=== PATIENT | female | born 1940 | race Caucasian/White ===

== ENCOUNTER 2021-08-16 12:53 | Inpatient (IN) | payer OTHER ==
[2021-08-16 17:12] LABS: EPI CELLS 2 /uL (0-25.1); HYALINE CASTS 7 /uL (0-3.1); URINE APPEARANCE CLOUDY; URINE BACTERIA >9,000 /uL (0-1359); URINE BILIRUBIN NEGATIVE (NEGATIVE); URINE COLOR YELLOW; URINE GLUCOSE (UA) NEGATIVE (NEGATIVE); URINE KETONE 1+ (NEGATIVE); URINE LEUK ESTERASE TRACE (NEGATIVE); URINE NITRITE POSITIVE (NEGATIVE); URINE PROTEIN 2+ (NEGATIVE); URINE RBC 10 /uL (0-23.9); URINE WBC 214 /uL (0-25.8)
[2021-08-16 17:22] LABS: CHLORIDE 105 mmol/L (98-107); SODIUM 137 mmol/L (136-145)
[2021-08-16 17:24] LABS: CALCIUM 9.3 mg/dL (8.5-10.1)
[2021-08-16 17:25] LABS: ALBUMIN 3.9 g/dl (3.4-5.0); ANION GAP 12 MMOL/L (8-16); BLOOD UREA NITROGEN 11.4 mg/dL (7-18); CO2 21 mmol/L (21-32); GLUCOSE,RANDOM 115 mg/dL (74-106); MAGNESIUM 2.2 mg/dL (1.8-2.4)
[2021-08-16] MEDS ORDERED: CEFTRIAXONE 1,000 MG in DEXTROSE 5%-WATER - 50 ML IVPB ONE (17:25)
[2021-08-16 17:28] LABS: CREATININE 0.8 mg/dL (0.55-1.3); PHOSPHOROUS 3.9 mg/dL (2.5-4.9); SGOT/AST 51 U/L (15-37); SGPT/ALT 28 U/L (13-61)
[2021-08-16 17:30] LABS: BASO % 1.2 % (0-2.0); BILIRUBIN,TOTAL 1.2 mg/dL (0.2-1); EOS % 0.1 % (0-4.5); HEMATOCRIT 39.6 % (32.4-45.2); HEMOGLOBIN 13.4 GM/dL (10.7-15.3); MCH 28.5 pg (25.7-33.7); MCHC 33.8 g/dl (32.0-36.0); MEAN CELL VOLUME 84.2 fl (80-96); MEAN PLT VOLUME 9.4 fl (7.5-11.1); MONO % 2.9 % (3.8-10.2); NEUT % 89.8 % (42.8-82.8); PLATELET COUNT 225 10^3/uL (134-434); RBC 4.71 M/mm3 (3.60-5.2); RDW 13.7 % (11.6-15.6); TOT PROT 7.1 g/dl (6.4-8.2); WHITE BLOOD COUNT 10.2 K/mm3 (4.0-10.0)
[2021-08-16 17:31] LABS: ALK PHOS 89 U/L (45-117)
[2021-08-16 18:09] LABS: PLATELET ESTIMATE ADEQUATE
[2021-08-16] MEDS ORDERED: CEFTRIAXONE 1 GM/50 ML BAG ONE (18:16)
[2021-08-16] MEDS ORDERED: ASPIRIN 81 MG CHEWABLE TABLETS ONE (18:16)
[2021-08-16] MEDS ORDERED: ASPIRIN 81 MG CHEWABLE TABLETS PO ONE (18:16)
[2021-08-16] MEDS ORDERED: ACETAMINOPHEN 325 MG TABLET (FP) PO PRN (21:58)
[2021-08-16] MEDS ORDERED: POLYETHYLENE GLYCOL (HEALTHYLAX) 3350 17 GM PACKET PO PRN (21:58)
[2021-08-17] MEDS: DEXTROSE 5%-NORMAL SALINE 1,000 ML IV SCH ×2 (01:47→22:19)
[2021-08-17 07:09] LABS: BASO % 0.3 % (0-2.0); EOS % 0.1 % (0-4.5); HEMATOCRIT 39.3 % (32.4-45.2); LYMPH % 7.2 % (8-40); MCH 28.3 pg (25.7-33.7); MCHC 33.2 g/dl (32.0-36.0); MEAN CELL VOLUME 85.2 fl (80-96); MEAN PLT VOLUME 9.2 fl (7.5-11.1); MONO % 5.3 % (3.8-10.2); NEUT % 87.1 % (42.8-82.8); PLATELET COUNT 212 10^3/uL (134-434); RBC 4.61 M/mm3 (3.60-5.2); RDW 13.9 % (11.6-15.6); WHITE BLOOD COUNT 10.4 K/mm3 (4.0-10.0)
[2021-08-17 07:21] LABS: INR 1.12 (0.83-1.09); PROTHROMBIN TIME (PATIENT) 12.9 SEC (9.7-13.0)
[2021-08-17 07:24] LABS: ACTIVATED PTT 29.8 SECONDS (25.2-36.5)
[2021-08-17 07:28] LABS: CHLORIDE 105 mmol/L (98-107); SODIUM 138 mmol/L (136-145)
[2021-08-17 07:29] LABS: CALCIUM 9.2 mg/dL (8.5-10.1)
[2021-08-17 07:30] LABS: ANION GAP 13 MMOL/L (8-16); BLOOD UREA NITROGEN 14.7 mg/dL (7-18); CO2 20 mmol/L (21-32); GLUCOSE,RANDOM 104 mg/dL (74-106)
[2021-08-17 07:34] LABS: CREATININE 0.7 mg/dL (0.55-1.3)
[2021-08-17] MEDS: ENOXAPARIN NA (PORCINE) 40 MG/0.4 ML DISP.SYRIN SQ SCH (10:05)
[2021-08-17 12:14] LABS: CHOLESTEROL 189 mg/dL (50-200); TRIGLYCERIDES 78 mg/dL (0-150)
[2021-08-17 12:15] LABS: LDL CHOLESTEROL (ONLY SJRH) 116 mg/dL (5-100)
[2021-08-17 12:16] LABS: HDL CHOLESTEROL 65 mg/dL (40-60)
[2021-08-17 12:18] LABS: N-TERMINAL BNP 7055.6 pg/ml (5-450)
[2021-08-17] MEDS: ASPIRIN 81 MG CHEWABLE TABLETS PO SCH (13:19)
[2021-08-17] MEDS: SODIUM CHLORIDE 1,000 ML IV SCH (13:19)
[2021-08-17] MEDS ORDERED: cefTRIAXone SODIUM 1 GM VIAL ONE (17:52)
[2021-08-17] MEDS: CEFTRIAXONE 1 GM in DEXTROSE 5%-WATER - 50 ML IVPB SCH (18:08)
[2021-08-18 08:04] LABS: BASO % 0.8 % (0-2.0); EOS % 1.6 % (0-4.5); HEMATOCRIT 38.6 % (32.4-45.2); HEMOGLOBIN 12.9 GM/dL (10.7-15.3); LYMPH % 13.4 % (8-40); MCH 28.5 pg (25.7-33.7); MCHC 33.4 g/dl (32.0-36.0); MEAN CELL VOLUME 85.1 fl (80-96); MEAN PLT VOLUME 9.5 fl (7.5-11.1); MONO % 8.7 % (3.8-10.2); NEUT % 75.5 % (42.8-82.8); PLATELET COUNT 220 10^3/uL (134-434); RBC 4.53 M/mm3 (3.60-5.2); RDW 13.7 % (11.6-15.6); WHITE BLOOD COUNT 7.6 K/mm3 (4.0-10.0)
[2021-08-18 08:27] LABS: BLOOD UREA NITROGEN 16.8 mg/dL (7-18); CALCIUM 9.4 mg/dL (8.5-10.1)
[2021-08-18 08:30] LABS: CREATININE 0.7 mg/dL (0.55-1.3)
[2021-08-18 08:32] LABS: BILIRUBIN,TOTAL 1.1 mg/dL (0.2-1); TOT PROT 6.3 g/dl (6.4-8.2)
[2021-08-18 08:33] LABS: ALBUMIN 3.4 g/dl (3.4-5.0)
[2021-08-18] MEDS ORDERED: cefTRIAXone SODIUM 1 GM VIAL ONE (09:25)
[2021-08-18] MEDS ORDERED: DEXTROSE 5%-WATER - 50 ML IVPB ONE (09:25)
[2021-08-18] MEDS: METOPROLOL TARTRATE 25 MG TABLET (FP) PO SCH ×2 (09:28→22:34)
[2021-08-18] MEDS: ASPIRIN 81 MG CHEWABLE TABLETS PO SCH (09:28)
[2021-08-18] MEDS: ENOXAPARIN NA (PORCINE) 40 MG/0.4 ML DISP.SYRIN SQ SCH (09:28)
[2021-08-18] MEDS: CEFTRIAXONE 1 GM in DEXTROSE 5%-WATER - 50 ML IVPB SCH (09:28)
[2021-08-18] MEDS: SODIUM CHLORIDE 1,000 ML IV SCH (22:34)
[2021-08-18] MEDS: DEXTROSE 5%-NORMAL SALINE 1,000 ML IV SCH (22:34)
[2021-08-18] MEDS: MELATONIN 5 MG TABLETS PO PRN (22:38)
[2021-08-19 07:05] LABS: BASO % 1.3 % (0-2.0); EOS % 2.4 % (0-4.5); HEMATOCRIT 38.8 % (32.4-45.2); HEMOGLOBIN 13.2 GM/dL (10.7-15.3); LYMPH % 17.8 % (8-40); MCH 28.7 pg (25.7-33.7); MCHC 34.1 g/dl (32.0-36.0); MEAN CELL VOLUME 84.3 fl (80-96); MEAN PLT VOLUME 9.7 fl (7.5-11.1); MONO % 7.5 % (3.8-10.2); PLATELET COUNT 217 10^3/uL (134-434); RBC 4.61 M/mm3 (3.60-5.2); RDW 13.7 % (11.6-15.6); WHITE BLOOD COUNT 7.1 K/mm3 (4.0-10.0)
[2021-08-19 07:28] LABS: CALCIUM 8.8 mg/dL (8.5-10.1)
[2021-08-19 07:29] LABS: BLOOD UREA NITROGEN 13.9 mg/dL (7-18)
[2021-08-19 07:33] LABS: CREATININE 0.5 mg/dL (0.55-1.3)
[2021-08-19] MEDS: D5-1/2NS+10 MEQ KCL - 10 MEQ/1,000 ML INFUS.BAG IV SCH (10:30)
[2021-08-19] MEDS ORDERED: cefTRIAXone SODIUM 1 GM VIAL ONE (10:51)
[2021-08-19] MEDS ORDERED: DEXTROSE 5%-WATER - 50 ML IVPB ONE (10:51)
[2021-08-19] MEDS: CEFTRIAXONE 1 GM in DEXTROSE 5%-WATER - 50 ML IVPB SCH (10:53)
[2021-08-19] MEDS: ASPIRIN 81 MG CHEWABLE TABLETS PO SCH (10:53)
[2021-08-19] MEDS: ENOXAPARIN NA (PORCINE) 40 MG/0.4 ML DISP.SYRIN SQ SCH (10:53)
[2021-08-19] MEDS: METOPROLOL TARTRATE 25 MG TABLET (FP) PO SCH ×2 (10:53→21:49)
[2021-08-19] MEDS: MELATONIN 5 MG TABLETS PO PRN (21:49)
[2021-08-19] MEDS: ATORVASTATIN CA 10 MG TABLET (FP) PO SCH (21:50)
[2021-08-20 07:32] LABS: BASO % 0.9 % (0-2.0); EOS % 2.9 % (0-4.5); HEMATOCRIT 39.5 % (32.4-45.2); HEMOGLOBIN 13.3 GM/dL (10.7-15.3); LYMPH % 14.2 % (8-40); MCH 28.2 pg (25.7-33.7); MCHC 33.6 g/dl (32.0-36.0); MEAN CELL VOLUME 84.1 fl (80-96); MEAN PLT VOLUME 9.8 fl (7.5-11.1); MONO % 7.9 % (3.8-10.2); NEUT % 74.1 % (42.8-82.8); PLATELET COUNT 223 10^3/uL (134-434); RDW 13.9 % (11.6-15.6); WHITE BLOOD COUNT 7.6 K/mm3 (4.0-10.0)
[2021-08-20 07:49] LABS: CALCIUM 8.7 mg/dL (8.5-10.1)
[2021-08-20 07:53] LABS: CREATININE 0.6 mg/dL (0.55-1.3)
[2021-08-20] MEDS ORDERED: DEXTROSE 5%-WATER - 50 ML IVPB ONE (09:18)
[2021-08-20] MEDS ORDERED: cefTRIAXone SODIUM 1 GM VIAL ONE (09:18)
[2021-08-20] MEDS: D5-1/2NS+10 MEQ KCL - 10 MEQ/1,000 ML INFUS.BAG IV SCH (09:48)
[2021-08-20] MEDS: ASPIRIN 81 MG CHEWABLE TABLETS PO SCH (09:50)
[2021-08-20] MEDS: METOPROLOL TARTRATE 25 MG TABLET (FP) PO SCH ×2 (09:51→21:54)
[2021-08-20] MEDS: CEFTRIAXONE 1 GM in DEXTROSE 5%-WATER - 50 ML IVPB SCH (09:51)
[2021-08-20] MEDS: ENOXAPARIN NA (PORCINE) 40 MG/0.4 ML DISP.SYRIN SQ SCH (09:51)
[2021-08-20] MEDS: MELATONIN 5 MG TABLETS PO PRN (21:54)
[2021-08-20] MEDS: ATORVASTATIN CA 10 MG TABLET (FP) PO SCH (21:54)
[2021-08-21] MEDS: ENOXAPARIN NA (PORCINE) 40 MG/0.4 ML DISP.SYRIN SQ SCH (10:53)
[2021-08-21] MEDS: CEFUROXIME AXETIL 500 MG TABLET PO SCH ×2 (10:53→23:04)
[2021-08-21] MEDS: METOPROLOL TARTRATE 25 MG TABLET (FP) PO SCH ×2 (10:53→23:04)
[2021-08-21] MEDS: ASPIRIN 81 MG CHEWABLE TABLETS PO SCH (10:53)
[2021-08-21] MEDS: D5-1/2NS+10 MEQ KCL - 10 MEQ/1,000 ML INFUS.BAG IV SCH (14:49)
[2021-08-21] MEDS: MELATONIN 5 MG TABLETS PO PRN (23:04)
[2021-08-21] MEDS: ATORVASTATIN CA 10 MG TABLET (FP) PO SCH (23:04)
[2021-08-22] MEDS: LEVOTHYROXINE NA 25 MCG TABLET (FP) PO SCH (06:05)
[2021-08-22] MEDS ORDERED: LOSARTAN POTASSIUM 25 MG TABLET PO ONE (08:49)
[2021-08-22] MEDS: D5-1/2NS+10 MEQ KCL - 10 MEQ/1,000 ML INFUS.BAG IV SCH ×2 (08:54→20:26)
[2021-08-22] MEDS: ASPIRIN 81 MG CHEWABLE TABLETS PO SCH (09:52)
[2021-08-22] MEDS: ENOXAPARIN NA (PORCINE) 40 MG/0.4 ML DISP.SYRIN SQ SCH (09:52)
[2021-08-22] MEDS: METOPROLOL TARTRATE 25 MG TABLET (FP) PO SCH ×2 (09:52→21:07)
[2021-08-22] MEDS: CEFUROXIME AXETIL 500 MG TABLET PO SCH ×2 (09:53→21:07)
[2021-08-22 11:34] LABS: BASO % 1.2 % (0-2.0); HEMATOCRIT 38.2 % (32.4-45.2); HEMOGLOBIN 12.9 GM/dL (10.7-15.3); LYMPH % 12.7 % (8-40); MCH 28.2 pg (25.7-33.7); MCHC 33.7 g/dl (32.0-36.0); MEAN CELL VOLUME 83.6 fl (80-96); MEAN PLT VOLUME 9.3 fl (7.5-11.1); MONO % 8.8 % (3.8-10.2); NEUT % 73.3 % (42.8-82.8); PLATELET COUNT 244 10^3/uL (134-434); RBC 4.57 M/mm3 (3.60-5.2); WHITE BLOOD COUNT 6.5 K/mm3 (4.0-10.0)
[2021-08-22 11:56] LABS: CALCIUM 8.9 mg/dL (8.5-10.1)
[2021-08-22 11:57] LABS: BLOOD UREA NITROGEN 4.3 mg/dL (7-18)
[2021-08-22 12:00] LABS: CREATININE 0.5 mg/dL (0.55-1.3)
[2021-08-22] MEDS: AMMONIUM LACTATE 12% LOTION 225 GM BOTTLE TP SCH ×3 (12:36→21:08)
[2021-08-22] MEDS: ATORVASTATIN CA 10 MG TABLET (FP) PO SCH (21:07)
[2021-08-23] MEDS: LEVOTHYROXINE NA 25 MCG TABLET (FP) PO SCH (06:28)
[2021-08-23 07:42] LABS: BASO % 0.8 % (0-2.0); EOS % 3.9 % (0-4.5); HEMATOCRIT 37.8 % (32.4-45.2); HEMOGLOBIN 12.7 GM/dL (10.7-15.3); LYMPH % 13.9 % (8-40); MCHC 33.7 g/dl (32.0-36.0); MEAN CELL VOLUME 83.2 fl (80-96); MEAN PLT VOLUME 10.1 fl (7.5-11.1); MONO % 8.4 % (3.8-10.2); PLATELET COUNT 248 10^3/uL (134-434); RBC 4.54 M/mm3 (3.60-5.2); RDW 13.9 % (11.6-15.6)
[2021-08-23 08:12] LABS: CALCIUM 8.6 mg/dL (8.5-10.1)
[2021-08-23 08:13] LABS: BLOOD UREA NITROGEN 4.5 mg/dL (7-18)
[2021-08-23 08:16] LABS: CREATININE 0.5 mg/dL (0.55-1.3)
[2021-08-23] MEDS: ASPIRIN 81 MG CHEWABLE TABLETS PO SCH (10:27)
[2021-08-23] MEDS: CEFUROXIME AXETIL 500 MG TABLET PO SCH ×2 (10:27→21:14)
[2021-08-23] MEDS: METOPROLOL TARTRATE 25 MG TABLET (FP) PO SCH ×2 (10:27→21:14)
[2021-08-23] MEDS: D5-1/2NS+10 MEQ KCL - 10 MEQ/1,000 ML INFUS.BAG IV SCH (10:27)
[2021-08-23] MEDS: ENOXAPARIN NA (PORCINE) 40 MG/0.4 ML DISP.SYRIN SQ SCH (10:27)
[2021-08-23] MEDS: AMMONIUM LACTATE 12% LOTION 225 GM BOTTLE TP SCH ×2 (10:28→22:16)
[2021-08-23] MEDS ORDERED: POLYETHYLENE GLYCOL (HEALTHYLAX) 3350 17 GM PACKET PO PRN (19:43)
[2021-08-23] MEDS ORDERED: ACETAMINOPHEN 325 MG TABLET (FP) PO PRN (19:43)
[2021-08-23] MEDS ORDERED: MELATONIN 5 MG TABLETS PO PRN (19:43)
[2021-08-23] MEDS: LOSARTAN POTASSIUM 50 MG TABLET PO SCH (20:02)
[2021-08-23] MEDS: ATORVASTATIN CA 10 MG TABLET (FP) PO SCH (21:14)
[2021-08-24] MEDS: LEVOTHYROXINE NA 25 MCG TABLET (FP) PO SCH (06:05)
[2021-08-24] MEDS: CEFUROXIME AXETIL 500 MG TABLET PO SCH ×2 (09:59→21:59)
[2021-08-24] MEDS: METOPROLOL TARTRATE 25 MG TABLET (FP) PO SCH ×2 (09:59→22:00)
[2021-08-24] MEDS: ASPIRIN 81 MG CHEWABLE TABLETS PO SCH (09:59)
[2021-08-24] MEDS: AMMONIUM LACTATE 12% LOTION 225 GM BOTTLE TP SCH ×2 (09:59→22:00)
[2021-08-24] MEDS: ENOXAPARIN NA (PORCINE) 40 MG/0.4 ML DISP.SYRIN SQ SCH (09:59)
[2021-08-24] MEDS: LOSARTAN POTASSIUM 50 MG TABLET PO SCH (09:59)
[2021-08-24 13:29] LABS: BASO % 1.5 % (0-2.0); EOS % 0.8 % (0-4.5); LYMPH % 8.2 % (8-40); MCH 28.3 pg (25.7-33.7); MCHC 34.2 g/dl (32.0-36.0); MEAN CELL VOLUME 82.8 fl (80-96); MEAN PLT VOLUME 9.7 fl (7.5-11.1); MONO % 15.5 % (3.8-10.2); PLATELET COUNT 263 10^3/uL (134-434); RBC 4.95 M/mm3 (3.60-5.2); RDW 13.8 % (11.6-15.6); WHITE BLOOD COUNT 4.5 K/mm3 (4.0-10.0)
[2021-08-24 16:19] LABS: BLOOD UREA NITROGEN 9.1 mg/dL (7-18); CALCIUM 9.1 mg/dL (8.5-10.1); CREATININE 0.6 mg/dL (0.55-1.3)
[2021-08-24] MEDS: ATORVASTATIN CA 10 MG TABLET (FP) PO SCH (22:00)
[2021-08-25] MEDS: LEVOTHYROXINE NA 25 MCG TABLET (FP) PO SCH (06:09)
[2021-08-25] MEDS: D5-1/2NS+10 MEQ KCL - 10 MEQ/1,000 ML INFUS.BAG IV SCH ×2 (10:24→20:57)
[2021-08-25] MEDS: ASPIRIN 81 MG CHEWABLE TABLETS PO SCH (10:25)
[2021-08-25] MEDS: CEFUROXIME AXETIL 500 MG TABLET PO SCH ×2 (10:26→23:33)
[2021-08-25] MEDS: LOSARTAN POTASSIUM 50 MG TABLET PO SCH (10:26)
[2021-08-25] MEDS: METOPROLOL TARTRATE 25 MG TABLET (FP) PO SCH ×2 (10:26→23:34)
[2021-08-25] MEDS: AMMONIUM LACTATE 12% LOTION 225 GM BOTTLE TP SCH ×2 (10:27→23:34)
[2021-08-25] MEDS: ENOXAPARIN NA (PORCINE) 40 MG/0.4 ML DISP.SYRIN SQ SCH (10:27)
[2021-08-25 20:20] LABS: PH,URINE 5.5 (5.0-8.0); URINE APPEARANCE CLEAR; URINE BILIRUBIN NEGATIVE (NEGATIVE); URINE COLOR DK YELLOW; URINE GLUCOSE (UA) NEGATIVE (NEGATIVE); URINE KETONE TRACE (NEGATIVE); URINE LEUK ESTERASE NEGATIVE (NEGATIVE); URINE NITRITE NEGATIVE (NEGATIVE); URINE PROTEIN TRACE (NEGATIVE)
[2021-08-25] MEDS: ATORVASTATIN CA 10 MG TABLET (FP) PO SCH (23:34)
[2021-08-26] MEDS: LEVOTHYROXINE NA 25 MCG TABLET (FP) PO SCH (06:03)
[2021-08-26 09:04] LABS: BASO % 0.7 % (0-2.0); EOS % 0.8 % (0-4.5); HEMATOCRIT 37.1 % (32.4-45.2); HEMOGLOBIN 12.6 GM/dL (10.7-15.3); LYMPH % 20.5 % (8-40); MCH 28.3 pg (25.7-33.7); MCHC 33.9 g/dl (32.0-36.0); MEAN CELL VOLUME 83.5 fl (80-96); MEAN PLT VOLUME 9.6 fl (7.5-11.1); MONO % 15.8 % (3.8-10.2); NEUT % 62.2 % (42.8-82.8); PLATELET COUNT 235 10^3/uL (134-434); RBC 4.44 M/mm3 (3.60-5.2); RDW 13.7 % (11.6-15.6); WHITE BLOOD COUNT 4.3 K/mm3 (4.0-10.0)
[2021-08-26] MEDS: D5-1/2NS+10 MEQ KCL - 10 MEQ/1,000 ML INFUS.BAG IV SCH (11:45)
[2021-08-26] MEDS: LOSARTAN POTASSIUM 50 MG TABLET PO SCH (11:46)
[2021-08-26] MEDS: CEFUROXIME AXETIL 500 MG TABLET PO SCH (11:46)
[2021-08-26] MEDS: METOPROLOL TARTRATE 25 MG TABLET (FP) PO SCH ×2 (11:46→21:44)
[2021-08-26] MEDS: ASPIRIN 81 MG CHEWABLE TABLETS PO SCH (11:46)
[2021-08-26] MEDS: ENOXAPARIN NA (PORCINE) 40 MG/0.4 ML DISP.SYRIN SQ SCH (11:46)
[2021-08-26] MEDS: AMMONIUM LACTATE 12% LOTION 225 GM BOTTLE TP SCH ×2 (11:47→21:44)
[2021-08-26] MEDS: ATORVASTATIN CA 10 MG TABLET (FP) PO SCH (21:44)
[2021-08-27] MEDS: LEVOTHYROXINE NA 25 MCG TABLET (FP) PO SCH (06:12)
[2021-08-27] MEDS: METOPROLOL TARTRATE 25 MG TABLET (FP) PO SCH ×2 (11:47→21:38)
[2021-08-27] MEDS: ENOXAPARIN NA (PORCINE) 40 MG/0.4 ML DISP.SYRIN SQ SCH (11:47)
[2021-08-27] MEDS: ASPIRIN 81 MG CHEWABLE TABLETS PO SCH (11:47)
[2021-08-27] MEDS: LOSARTAN POTASSIUM 50 MG TABLET PO SCH (11:47)
[2021-08-27] MEDS: SODIUM CHLORIDE 1,000 ML IV SCH (11:48)
[2021-08-27] MEDS: AMMONIUM LACTATE 12% LOTION 225 GM BOTTLE TP SCH ×2 (11:49→21:38)
[2021-08-27 13:02] LABS: EOS % 0.6 % (0-4.5); HEMATOCRIT 37.1 % (32.4-45.2); HEMOGLOBIN 12.8 GM/dL (10.7-15.3); LYMPH % 19.9 % (8-40); MCH 28.1 pg (25.7-33.7); MCHC 34.6 g/dl (32.0-36.0); MEAN CELL VOLUME 81.1 fl (80-96); MEAN PLT VOLUME 9.6 fl (7.5-11.1); MONO % 14.9 % (3.8-10.2); NEUT % 63.6 % (42.8-82.8); PLATELET COUNT 230 10^3/uL (134-434); RBC 4.57 M/mm3 (3.60-5.2); RDW 13.8 % (11.6-15.6); WHITE BLOOD COUNT 3.6 K/mm3 (4.0-10.0)
[2021-08-27 13:24] LABS: BLOOD UREA NITROGEN 12.7 mg/dL (7-18); CALCIUM 8.3 mg/dL (8.5-10.1); MAGNESIUM 2.2 mg/dL (1.8-2.4)
[2021-08-27 13:27] LABS: CREATININE 0.6 mg/dL (0.55-1.3)
[2021-08-27 14:28] LABS: URIC ACID 3.1 mg/dL (2.6-7.2)
[2021-08-27] MEDS: ATORVASTATIN CA 10 MG TABLET (FP) PO SCH (21:37)
[2021-08-28] MEDS: LEVOTHYROXINE NA 25 MCG TABLET (FP) PO SCH (09:00)
[2021-08-28 09:10] LABS: BLOOD UREA NITROGEN 11.7 mg/dL (7-18)
[2021-08-28 09:13] LABS: CREATININE 0.5 mg/dL (0.55-1.3)
[2021-08-28] MEDS: ASPIRIN 81 MG CHEWABLE TABLETS PO SCH (11:11)
[2021-08-28] MEDS: LOSARTAN POTASSIUM 50 MG TABLET PO SCH (11:11)
[2021-08-28] MEDS: AMMONIUM LACTATE 12% LOTION 225 GM BOTTLE TP SCH (11:11)
[2021-08-28] MEDS: METOPROLOL TARTRATE 25 MG TABLET (FP) PO SCH ×2 (11:11→22:18)
[2021-08-28] MEDS: SODIUM CHLORIDE 1,000 ML IV SCH (11:12)
[2021-08-28] MEDS: ENOXAPARIN NA (PORCINE) 40 MG/0.4 ML DISP.SYRIN SQ SCH (13:00)
[2021-08-28] MEDS ORDERED: SODIUM CHLORIDE 1,000 ML IV SCH (15:15)
[2021-08-28] MEDS ORDERED: REMDESIVIR 200 MG in SODIUM CHLORIDE 250 ML IVPB ONE ×2 (16:59→18:00)
[2021-08-28] MEDS: DEXAMETHASONE 4 MG TABLET (FP) PO SCH (18:02)
[2021-08-28] MEDS: ATORVASTATIN CA 10 MG TABLET (FP) PO SCH (22:18)
[2021-08-29] MEDS: AMMONIUM LACTATE 12% LOTION 225 GM BOTTLE TP SCH ×3 (01:31→22:07)
[2021-08-29] MEDS: LEVOTHYROXINE NA 25 MCG TABLET (FP) PO SCH (06:18)
[2021-08-29] MEDS: ASPIRIN 81 MG CHEWABLE TABLETS PO SCH (10:10)
[2021-08-29] MEDS: LOSARTAN POTASSIUM 50 MG TABLET PO SCH (10:10)
[2021-08-29] MEDS: METOPROLOL TARTRATE 25 MG TABLET (FP) PO SCH ×2 (10:10→22:06)
[2021-08-29] MEDS: DEXAMETHASONE 4 MG TABLET (FP) PO SCH (10:10)
[2021-08-29] MEDS: ENOXAPARIN NA (PORCINE) 40 MG/0.4 ML DISP.SYRIN SQ SCH (10:11)
[2021-08-29 11:33] LABS: CALCIUM 8.3 mg/dL (8.5-10.1)
[2021-08-29 11:39] LABS: CREATININE 0.4 mg/dL (0.55-1.3)
[2021-08-29 11:40] LABS: TOT PROT 5.2 g/dl (6.4-8.2)
[2021-08-29 11:41] LABS: ALBUMIN 2.6 g/dl (3.4-5.0); BILIRUBIN,TOTAL 0.3 mg/dL (0.2-1)
[2021-08-29] MEDS: REMDESIVIR 100 MG in SODIUM CHLORIDE 250 ML IVPB SCH (17:53)
[2021-08-29] MEDS ORDERED: REMDESIVIR 100 MG in SODIUM CHLORIDE 250 ML IVPB SCH (18:00)
[2021-08-29] MEDS: ATORVASTATIN CA 10 MG TABLET (FP) PO SCH (22:07)
[2021-08-30] MEDS: LEVOTHYROXINE NA 25 MCG TABLET (FP) PO SCH (06:02)
[2021-08-30 10:07] LABS: BASO % 0.2 % (0-2.0); HEMATOCRIT 37.3 % (32.4-45.2); HEMOGLOBIN 12.5 GM/dL (10.7-15.3); LYMPH % 14.8 % (8-40); MCHC 33.6 g/dl (32.0-36.0); MEAN CELL VOLUME 83.3 fl (80-96); MEAN PLT VOLUME 9.9 fl (7.5-11.1); MONO % 8.1 % (3.8-10.2); NEUT % 76.9 % (42.8-82.8); PLATELET COUNT 243 10^3/uL (134-434); RBC 4.48 M/mm3 (3.60-5.2); WHITE BLOOD COUNT 7.1 K/mm3 (4.0-10.0)
[2021-08-30 10:27] LABS: CALCIUM 8.6 mg/dL (8.5-10.1)
[2021-08-30 10:28] LABS: ALBUMIN 2.6 g/dl (3.4-5.0); BLOOD UREA NITROGEN 14.2 mg/dL (7-18)
[2021-08-30 10:31] LABS: CREATININE 0.6 mg/dL (0.55-1.3)
[2021-08-30 10:32] LABS: BILIRUBIN,TOTAL 0.6 mg/dL (0.2-1)
[2021-08-30 10:33] LABS: TOT PROT 5.2 g/dl (6.4-8.2)
[2021-08-30] MEDS: ENOXAPARIN NA (PORCINE) 40 MG/0.4 ML DISP.SYRIN SQ SCH (10:40)
[2021-08-30] MEDS: AMMONIUM LACTATE 12% LOTION 225 GM BOTTLE TP SCH ×2 (10:41→22:05)
[2021-08-30] MEDS: METOPROLOL TARTRATE 25 MG TABLET (FP) PO SCH ×2 (10:41→22:06)
[2021-08-30] MEDS: DEXAMETHASONE 4 MG TABLET (FP) PO SCH (10:41)
[2021-08-30] MEDS: LOSARTAN POTASSIUM 50 MG TABLET PO SCH (10:41)
[2021-08-30] MEDS: ASPIRIN 81 MG CHEWABLE TABLETS PO SCH (10:42)
[2021-08-30] MEDS: REMDESIVIR 100 MG in SODIUM CHLORIDE 250 ML IVPB SCH (16:39)
[2021-08-30] MEDS: ATORVASTATIN CA 10 MG TABLET (FP) PO SCH (22:06)
[2021-08-31] MEDS: LEVOTHYROXINE NA 25 MCG TABLET (FP) PO SCH (06:07)
[2021-08-31] MEDS: DEXAMETHASONE 4 MG TABLET (FP) PO SCH (09:21)
[2021-08-31] MEDS: ENOXAPARIN NA (PORCINE) 40 MG/0.4 ML DISP.SYRIN SQ SCH (09:21)
[2021-08-31] MEDS: METOPROLOL TARTRATE 25 MG TABLET (FP) PO SCH ×2 (09:22→22:19)
[2021-08-31] MEDS: LOSARTAN POTASSIUM 50 MG TABLET PO SCH (09:22)
[2021-08-31] MEDS: ASPIRIN 81 MG CHEWABLE TABLETS PO SCH (09:22)
[2021-08-31] MEDS: AMMONIUM LACTATE 12% LOTION 225 GM BOTTLE TP SCH ×2 (09:22→22:20)
[2021-08-31 09:44] LABS: BASO % 0.3 % (0-2.0); HEMATOCRIT 36.6 % (32.4-45.2); HEMOGLOBIN 12.4 GM/dL (10.7-15.3); LYMPH % 14.3 % (8-40); MCH 28.2 pg (25.7-33.7); MCHC 33.8 g/dl (32.0-36.0); MEAN CELL VOLUME 83.3 fl (80-96); MEAN PLT VOLUME 9.6 fl (7.5-11.1); MONO % 8.1 % (3.8-10.2); NEUT % 77.3 % (42.8-82.8); PLATELET COUNT 235 10^3/uL (134-434); RBC 4.39 M/mm3 (3.60-5.2); RDW 14.5 % (11.6-15.6); WHITE BLOOD COUNT 8.1 K/mm3 (4.0-10.0)
[2021-08-31 09:57] LABS: ALBUMIN 2.7 g/dl (3.4-5.0); CALCIUM 8.7 mg/dL (8.5-10.1)
[2021-08-31 09:58] LABS: BLOOD UREA NITROGEN 18.8 mg/dL (7-18)
[2021-08-31 10:01] LABS: CREATININE 0.6 mg/dL (0.55-1.3)
[2021-08-31 10:02] LABS: BILIRUBIN,TOTAL 0.4 mg/dL (0.2-1)
[2021-08-31] MEDS ORDERED: D5-1/2NS+10 MEQ KCL - 10 MEQ/1,000 ML INFUS.BAG IV SCH (13:00)
[2021-08-31] MEDS: AMINO ACIDS/PROTEIN HYDROLYS 30 ML LIQUID.PKT PO SCH (16:45)
[2021-08-31] MEDS: REMDESIVIR 100 MG in SODIUM CHLORIDE 250 ML IVPB SCH (16:45)
[2021-08-31] MEDS: ATORVASTATIN CA 10 MG TABLET (FP) PO SCH (22:19)
[2021-09-01] MEDS: LEVOTHYROXINE NA 25 MCG TABLET (FP) PO SCH (06:18)
[2021-09-01] MEDS: ENOXAPARIN NA (PORCINE) 40 MG/0.4 ML DISP.SYRIN SQ SCH (09:54)
[2021-09-01] MEDS: METOPROLOL TARTRATE 25 MG TABLET (FP) PO SCH ×2 (09:54→22:03)
[2021-09-01] MEDS: LOSARTAN POTASSIUM 50 MG TABLET PO SCH (09:54)
[2021-09-01] MEDS: ASPIRIN 81 MG CHEWABLE TABLETS PO SCH (09:54)
[2021-09-01] MEDS: DEXAMETHASONE 4 MG TABLET (FP) PO SCH (09:54)
[2021-09-01] MEDS: AMINO ACIDS/PROTEIN HYDROLYS 30 ML LIQUID.PKT PO SCH (09:55)
[2021-09-01] MEDS: AMMONIUM LACTATE 12% LOTION 225 GM BOTTLE TP SCH ×2 (09:55→22:04)
[2021-09-01] MEDS ORDERED: D5-NS + 20 MEQ KCL - 20 MEQ/1,000 ML INFUS.BAG IV SCH (12:30)
[2021-09-01 12:49] LABS: CALCIUM 8.5 mg/dL (8.5-10.1)
[2021-09-01 12:53] LABS: CREATININE 0.4 mg/dL (0.55-1.3)
[2021-09-01 13:06] LABS: N-TERMINAL BNP 14259.1 pg/ml (5-450)
[2021-09-01] MEDS: AMINO ACIDS 4.25%/D5W 1,000 ML IV SCH (15:14)
[2021-09-01 15:44] VITALS: BMI 17.7
[2021-09-01] MEDS ORDERED: REMDESIVIR 100 MG in SODIUM CHLORIDE 250 ML IVPB SCH (17:00)
[2021-09-01] MEDS ORDERED: POLYETHYLENE GLYCOL (HEALTHYLAX) 3350 17 GM PACKET PO PRN (17:45)
[2021-09-01] MEDS: REMDESIVIR 100 MG in SODIUM CHLORIDE 250 ML IVPB SCH (17:53)
[2021-09-01] MEDS: ATORVASTATIN CA 10 MG TABLET (FP) PO SCH (22:03)
[2021-09-02] MEDS: AMINO ACIDS 4.25%/D5W 1,000 ML IV SCH ×2 (02:15→15:01)
[2021-09-02] MEDS: LEVOTHYROXINE NA 25 MCG TABLET (FP) PO SCH (06:10)
[2021-09-02 09:19] LABS: BASO % 0.1 % (0-2.0); EOS % 0.1 % (0-4.5); HEMATOCRIT 39.2 % (32.4-45.2); HEMOGLOBIN 13.2 GM/dL (10.7-15.3); LYMPH % 10.8 % (8-40); MCHC 33.8 g/dl (32.0-36.0); MEAN CELL VOLUME 82.8 fl (80-96); MEAN PLT VOLUME 9.6 fl (7.5-11.1); MONO % 10.9 % (3.8-10.2); NEUT % 78.1 % (42.8-82.8); PLATELET COUNT 249 10^3/uL (134-434); RBC 4.73 M/mm3 (3.60-5.2); RDW 13.8 % (11.6-15.6); WHITE BLOOD COUNT 9.8 K/mm3 (4.0-10.0)
[2021-09-02 10:09] LABS: BLOOD UREA NITROGEN 25.1 mg/dL (7-18); CALCIUM 8.4 mg/dL (8.5-10.1)
[2021-09-02 10:13] LABS: CREATININE 0.4 mg/dL (0.55-1.3)
[2021-09-02] MEDS: ENOXAPARIN NA (PORCINE) 40 MG/0.4 ML DISP.SYRIN SQ SCH (10:43)
[2021-09-02] MEDS: DEXAMETHASONE 4 MG TABLET (FP) PO SCH (10:43)
[2021-09-02] MEDS: METOPROLOL TARTRATE 25 MG TABLET (FP) PO SCH ×2 (10:44→21:54)
[2021-09-02] MEDS: ACETAMINOPHEN 325 MG TABLET (FP) PO PRN ×2 (10:45→21:53)
[2021-09-02] MEDS: AMMONIUM LACTATE 12% LOTION 225 GM BOTTLE TP SCH ×2 (10:46→21:54)
[2021-09-02] MEDS: ASPIRIN 81 MG CHEWABLE TABLETS PO SCH (10:46)
[2021-09-02] MEDS: LOSARTAN POTASSIUM 50 MG TABLET PO SCH (10:46)
[2021-09-02] MEDS: METOPROLOL TARTRATE 5 MG/5 ML VIAL IVPUSH PRN (18:52)
[2021-09-02] MEDS: MELATONIN 5 MG TABLETS PO PRN (21:53)
[2021-09-02] MEDS: ATORVASTATIN CA 10 MG TABLET (FP) PO SCH (21:53)
[2021-09-03] MEDS: AMINO ACIDS 4.25%/D5W 1,000 ML IV SCH ×3 (01:21→12:32)
[2021-09-03] MEDS: LEVOTHYROXINE NA 25 MCG TABLET (FP) PO SCH (06:02)
[2021-09-03 08:58] LABS: BASO % 0.2 % (0-2.0); EOS % 0.1 % (0-4.5); HEMOGLOBIN 13.5 GM/dL (10.7-15.3); LYMPH % 11.1 % (8-40); MCHC 33.8 g/dl (32.0-36.0); MEAN CELL VOLUME 82.8 fl (80-96); MEAN PLT VOLUME 10.4 fl (7.5-11.1); MONO % 10.1 % (3.8-10.2); NEUT % 78.5 % (42.8-82.8); PLATELET COUNT 246 10^3/uL (134-434); RBC 4.84 M/mm3 (3.60-5.2); RDW 13.9 % (11.6-15.6); WHITE BLOOD COUNT 10.2 K/mm3 (4.0-10.0)
[2021-09-03 09:36] LABS: ALBUMIN 2.5 g/dl (3.4-5.0); BLOOD UREA NITROGEN 29.4 mg/dL (7-18); CALCIUM 8.5 mg/dL (8.5-10.1)
[2021-09-03 09:39] LABS: CREATININE 0.5 mg/dL (0.55-1.3)
[2021-09-03 09:41] LABS: BILIRUBIN,TOTAL 0.4 mg/dL (0.2-1)
[2021-09-03] MEDS: DEXAMETHASONE 4 MG TABLET (FP) PO SCH (11:31)
[2021-09-03] MEDS: METOPROLOL TARTRATE 25 MG TABLET (FP) PO SCH ×2 (11:32→21:39)
[2021-09-03] MEDS: AMMONIUM LACTATE 12% LOTION 225 GM BOTTLE TP SCH ×2 (11:33→21:39)
[2021-09-03] MEDS: LOSARTAN POTASSIUM 50 MG TABLET PO SCH (11:33)
[2021-09-03] MEDS: ENOXAPARIN NA (PORCINE) 40 MG/0.4 ML DISP.SYRIN SQ SCH (11:34)
[2021-09-03] MEDS: ASPIRIN 81 MG CHEWABLE TABLETS PO SCH (11:36)
[2021-09-03] MEDS ORDERED: SODIUM CHLORIDE 1 GM TABLET PO ONE (13:15)
[2021-09-03] MEDS: RIVAROXABAN 20 MG TABLET PO SCH (17:48)
[2021-09-03] MEDS: PANTOPRAZOLE SODIUM 40 MG VIAL IVPUSH SCH (19:49)
[2021-09-03] MEDS: ATORVASTATIN CA 10 MG TABLET (FP) PO SCH (21:39)
[2021-09-04] MEDS: AMINO ACIDS 4.25%/D5W 1,000 ML IV SCH ×4 (01:24→18:49)
[2021-09-04] MEDS: LEVOTHYROXINE NA 25 MCG TABLET (FP) PO SCH (06:22)
[2021-09-04 09:48] LABS: CALCIUM 8.8 mg/dL (8.5-10.1)
[2021-09-04 09:49] LABS: ALBUMIN 2.6 g/dl (3.4-5.0); BLOOD UREA NITROGEN 28.1 mg/dL (7-18)
[2021-09-04 09:52] LABS: BILIRUBIN,TOTAL 0.6 mg/dL (0.2-1); CREATININE 0.5 mg/dL (0.55-1.3)
[2021-09-04 09:53] LABS: TOT PROT 5.1 g/dl (6.4-8.2)
[2021-09-04] MEDS: METOPROLOL TARTRATE 25 MG TABLET (FP) PO SCH ×2 (13:11→21:50)
[2021-09-04] MEDS: DEXAMETHASONE 4 MG TABLET (FP) PO SCH (13:11)
[2021-09-04] MEDS: LOSARTAN POTASSIUM 50 MG TABLET PO SCH (13:11)
[2021-09-04] MEDS: AMMONIUM LACTATE 12% LOTION 225 GM BOTTLE TP SCH ×2 (13:11→21:52)
[2021-09-04] MEDS: PANTOPRAZOLE SODIUM 40 MG VIAL IVPUSH SCH (13:11)
[2021-09-04] MEDS: RIVAROXABAN 20 MG TABLET PO SCH (18:03)
[2021-09-04] MEDS: ATORVASTATIN CA 10 MG TABLET (FP) PO SCH (21:51)
[2021-09-05] MEDS: AMINO ACIDS 4.25%/D5W 1,000 ML IV SCH ×2 (05:58→12:50)
[2021-09-05] MEDS: LEVOTHYROXINE NA 25 MCG TABLET (FP) PO SCH (05:59)
[2021-09-05 08:37] LABS: BASO % 0.6 % (0-2.0); EOS % 0.1 % (0-4.5); HEMATOCRIT 40.2 % (32.4-45.2); HEMOGLOBIN 13.7 GM/dL (10.7-15.3); LYMPH % 12.6 % (8-40); MCHC 33.9 g/dl (32.0-36.0); MEAN CELL VOLUME 82.6 fl (80-96); MEAN PLT VOLUME 10.1 fl (7.5-11.1); NEUT % 75.7 % (42.8-82.8); PLATELET COUNT 286 10^3/uL (134-434); RBC 4.87 M/mm3 (3.60-5.2); RDW 14.3 % (11.6-15.6); WHITE BLOOD COUNT 9.9 K/mm3 (4.0-10.0)
[2021-09-05 08:56] LABS: ALBUMIN 2.7 g/dl (3.4-5.0); BLOOD UREA NITROGEN 31.8 mg/dL (7-18); CALCIUM 8.9 mg/dL (8.5-10.1)
[2021-09-05 08:59] LABS: CREATININE 0.5 mg/dL (0.55-1.3)
[2021-09-05 09:01] LABS: BILIRUBIN,TOTAL 0.6 mg/dL (0.2-1); TOT PROT 5.3 g/dl (6.4-8.2)
[2021-09-05] MEDS: PANTOPRAZOLE SODIUM 40 MG VIAL IVPUSH SCH ×2 (09:39→10:51)
[2021-09-05] MEDS: METOPROLOL TARTRATE 25 MG TABLET (FP) PO SCH ×2 (09:39→21:36)
[2021-09-05] MEDS: DEXAMETHASONE 4 MG TABLET (FP) PO SCH (09:40)
[2021-09-05] MEDS: ACETAMINOPHEN 325 MG TABLET (FP) PO PRN ×2 (09:40→21:35)
[2021-09-05] MEDS: LOSARTAN POTASSIUM 50 MG TABLET PO SCH (09:40)
[2021-09-05] MEDS: METOPROLOL TARTRATE 5 MG/5 ML VIAL IVPUSH PRN (10:42)
[2021-09-05] MEDS: AMMONIUM LACTATE 12% LOTION 225 GM BOTTLE TP SCH ×2 (10:51→21:34)
[2021-09-05] MEDS: RIVAROXABAN 20 MG TABLET PO SCH (18:16)
[2021-09-05] MEDS: ATORVASTATIN CA 10 MG TABLET (FP) PO SCH (21:35)
[2021-09-05] MEDS: MELATONIN 5 MG TABLETS PO PRN (21:36)
[2021-09-06] MEDS: AMINO ACIDS 4.25%/D5W 1,000 ML IV SCH ×2 (02:01→12:35)
[2021-09-06] MEDS: LEVOTHYROXINE NA 25 MCG TABLET (FP) PO SCH (06:54)
[2021-09-06] MEDS: LOSARTAN POTASSIUM 50 MG TABLET PO SCH (09:46)
[2021-09-06] MEDS: DEXAMETHASONE 4 MG TABLET (FP) PO SCH (09:46)
[2021-09-06] MEDS: PANTOPRAZOLE SODIUM 40 MG VIAL IVPUSH SCH (09:47)
[2021-09-06] MEDS: METOPROLOL TARTRATE 25 MG TABLET (FP) PO SCH ×2 (09:47→22:57)
[2021-09-06] MEDS: AMMONIUM LACTATE 12% LOTION 225 GM BOTTLE TP SCH ×2 (09:50→22:58)
[2021-09-06] MEDS: RIVAROXABAN 20 MG TABLET PO SCH (17:32)
[2021-09-06] MEDS: ATORVASTATIN CA 10 MG TABLET (FP) PO SCH (22:57)
[2021-09-07] MEDS: AMINO ACIDS 4.25%/D5W 1,000 ML IV SCH ×2 (03:25→12:30)
[2021-09-07] MEDS: LEVOTHYROXINE NA 25 MCG TABLET (FP) PO SCH (06:21)
[2021-09-07 08:26] LABS: CALCIUM 8.9 mg/dL (8.5-10.1)
[2021-09-07 08:27] LABS: BLOOD UREA NITROGEN 34.3 mg/dL (7-18)
[2021-09-07 08:30] LABS: CREATININE 0.6 mg/dL (0.55-1.3)
[2021-09-07] MEDS: LOSARTAN POTASSIUM 50 MG TABLET PO SCH (09:54)
[2021-09-07] MEDS: PANTOPRAZOLE SODIUM 40 MG VIAL IVPUSH SCH (09:54)
[2021-09-07] MEDS: METOPROLOL TARTRATE 25 MG TABLET (FP) PO SCH ×2 (09:54→22:01)
[2021-09-07] MEDS: AMMONIUM LACTATE 12% LOTION 225 GM BOTTLE TP SCH ×2 (09:55→22:00)
[2021-09-07] MEDS: RIVAROXABAN 20 MG TABLET PO SCH (17:49)
[2021-09-07] MEDS: ATORVASTATIN CA 10 MG TABLET (FP) PO SCH (22:01)
[2021-09-08] MEDS: AMINO ACIDS 4.25%/D5W 1,000 ML IV SCH ×2 (06:07→16:00)
[2021-09-08] MEDS: LEVOTHYROXINE NA 25 MCG TABLET (FP) PO SCH (06:07)
[2021-09-08 07:18] LABS: BASO % 0.1 % (0-2.0); EOS % 0.6 % (0-4.5); HEMATOCRIT 40.3 % (32.4-45.2); HEMOGLOBIN 13.3 GM/dL (10.7-15.3); LYMPH % 8.8 % (8-40); MCH 27.7 pg (25.7-33.7); MEAN CELL VOLUME 83.7 fl (80-96); MEAN PLT VOLUME 10.4 fl (7.5-11.1); MONO % 8.6 % (3.8-10.2); NEUT % 81.9 % (42.8-82.8); PLATELET COUNT 268 10^3/uL (134-434); RBC 4.81 M/mm3 (3.60-5.2); RDW 14.4 % (11.6-15.6); WHITE BLOOD COUNT 18.4 K/mm3 (4.0-10.0)
[2021-09-08 07:41] LABS: CALCIUM 8.8 mg/dL (8.5-10.1)
[2021-09-08 07:42] LABS: BLOOD UREA NITROGEN 29.4 mg/dL (7-18)
[2021-09-08 07:45] LABS: CREATININE 0.6 mg/dL (0.55-1.3)
[2021-09-08] MEDS: LOSARTAN POTASSIUM 25 MG TABLET PO SCH (09:57)
[2021-09-08] MEDS: PANTOPRAZOLE SODIUM 40 MG VIAL IVPUSH SCH (09:57)
[2021-09-08] MEDS: METOPROLOL TARTRATE 25 MG TABLET (FP) PO SCH ×2 (09:57→22:18)
[2021-09-08] MEDS: AMMONIUM LACTATE 12% LOTION 225 GM BOTTLE TP SCH ×2 (09:57→22:19)
[2021-09-08] MEDS: SODIUM CHLORIDE 1 GM TABLET PO SCH (11:08)
[2021-09-08] MEDS: RIVAROXABAN 20 MG TABLET PO SCH (17:04)
[2021-09-08 18:57] LABS: EPI CELLS 3 /uL (0-25.1); HYALINE CASTS 1 /uL (0-3.1); PH,URINE 5.5 (5.0-8.0); URINE APPEARANCE CLOUDY; URINE BILIRUBIN NEGATIVE (NEGATIVE); URINE COLOR YELLOW; URINE GLUCOSE (UA) NEGATIVE (NEGATIVE); URINE KETONE NEGATIVE (NEGATIVE); URINE LEUK ESTERASE 3+ (NEGATIVE); URINE NITRITE POSITIVE (NEGATIVE); URINE PROTEIN 1+ (NEGATIVE); URINE RBC 67 /uL (0-23.9); URINE WBC 493 /uL (0-25.8)
[2021-09-08] MEDS: MELATONIN 5 MG TABLETS PO PRN (22:18)
[2021-09-08] MEDS: ATORVASTATIN CA 10 MG TABLET (FP) PO SCH (22:18)
[2021-09-09] MEDS: AMINO ACIDS 4.25%/D5W 1,000 ML IV SCH ×2 (03:15→12:21)
[2021-09-09] MEDS: LEVOTHYROXINE NA 25 MCG TABLET (FP) PO SCH (06:31)
[2021-09-09 08:52] LABS: CALCIUM 8.6 mg/dL (8.5-10.1)
[2021-09-09 08:53] LABS: ALBUMIN 2.4 g/dl (3.4-5.0)
[2021-09-09 08:56] LABS: CREATININE 0.7 mg/dL (0.55-1.3)
[2021-09-09 08:57] LABS: BILIRUBIN,TOTAL 0.9 mg/dL (0.2-1); TOT PROT 5.2 g/dl (6.4-8.2)
[2021-09-09] MEDS ORDERED: DEXTROSE 5%-WATER - 50 ML IVPB ONE (09:59)
[2021-09-09] MEDS ORDERED: cefTRIAXone SODIUM 1 GM VIAL ONE (09:59)
[2021-09-09] MEDS: CEFTRIAXONE 1 GM in DEXTROSE 5%-WATER - 50 ML IVPB SCH (10:46)
[2021-09-09] MEDS: PANTOPRAZOLE SODIUM 40 MG VIAL IVPUSH SCH (10:46)
[2021-09-09] MEDS: METOPROLOL TARTRATE 25 MG TABLET (FP) PO SCH ×2 (10:46→21:31)
[2021-09-09] MEDS: AMMONIUM LACTATE 12% LOTION 225 GM BOTTLE TP SCH ×2 (10:47→21:31)
[2021-09-09] MEDS: LOSARTAN POTASSIUM 25 MG TABLET PO SCH (10:47)
[2021-09-09] MEDS: SODIUM CHLORIDE 1 GM TABLET PO SCH (12:22)
[2021-09-09] MEDS: RIVAROXABAN 20 MG TABLET PO SCH (19:11)
[2021-09-09] MEDS: METOPROLOL TARTRATE 5 MG/5 ML VIAL IVPUSH PRN (21:30)
[2021-09-09] MEDS: MELATONIN 5 MG TABLETS PO PRN (21:31)
[2021-09-09] MEDS: ATORVASTATIN CA 10 MG TABLET (FP) PO SCH (21:31)
[2021-09-09] MEDS: ACETAMINOPHEN 325 MG TABLET (FP) PO PRN (21:31)
[2021-09-10] MEDS: AMINO ACIDS 4.25%/D5W 1,000 ML IV SCH ×3 (00:26→17:25)
[2021-09-10] MEDS: LEVOTHYROXINE NA 25 MCG TABLET (FP) PO SCH (06:34)
[2021-09-10 09:14] LABS: BASO % 0.2 % (0-2.0); EOS % 1.2 % (0-4.5); HEMATOCRIT 36.6 % (32.4-45.2); HEMOGLOBIN 12.4 GM/dL (10.7-15.3); LYMPH % 10.4 % (8-40); MCH 28.4 pg (25.7-33.7); MCHC 33.9 g/dl (32.0-36.0); MEAN CELL VOLUME 83.8 fl (80-96); MEAN PLT VOLUME 10.5 fl (7.5-11.1); MONO % 7.6 % (3.8-10.2); NEUT % 80.6 % (42.8-82.8); PLATELET COUNT 212 10^3/uL (134-434); RBC 4.36 M/mm3 (3.60-5.2); RDW 14.4 % (11.6-15.6); WHITE BLOOD COUNT 10.9 K/mm3 (4.0-10.0)
[2021-09-10 09:37] LABS: ALBUMIN 2.3 g/dl (3.4-5.0)
[2021-09-10 09:40] LABS: CALCIUM 8.5 mg/dL (8.5-10.1); CREATININE 0.6 mg/dL (0.55-1.3)
[2021-09-10 09:42] LABS: TOT PROT 5.1 g/dl (6.4-8.2)
[2021-09-10 09:43] LABS: BILIRUBIN,TOTAL 0.6 mg/dL (0.2-1)
[2021-09-10] MEDS ORDERED: cefTRIAXone SODIUM 1 GM VIAL ONE (09:46)
[2021-09-10] MEDS ORDERED: DEXTROSE 5%-WATER - 50 ML IVPB ONE (09:47)
[2021-09-10] MEDS: CEFTRIAXONE 1 GM in DEXTROSE 5%-WATER - 50 ML IVPB SCH (10:50)
[2021-09-10] MEDS: PANTOPRAZOLE SODIUM 40 MG VIAL IVPUSH SCH (10:51)
[2021-09-10] MEDS: SODIUM CHLORIDE 1 GM TABLET PO SCH (10:51)
[2021-09-10] MEDS: AMMONIUM LACTATE 12% LOTION 225 GM BOTTLE TP SCH ×2 (10:53→22:35)
[2021-09-10] MEDS: LOSARTAN POTASSIUM 25 MG TABLET PO SCH (10:53)
[2021-09-10] MEDS: METOPROLOL TARTRATE 25 MG TABLET (FP) PO SCH (10:53)
[2021-09-10] MEDS: METOPROLOL TARTRATE 50 MG TABLET (FP) PO SCH ×2 (15:00→22:33)
[2021-09-10] MEDS: RIVAROXABAN 20 MG TABLET PO SCH (17:06)
[2021-09-10] MEDS: MULTIVIT INJ. ADULT COMBO WITH VIT K 1 COMBO 10 ML VIAL IV SCH (18:42)
[2021-09-10] MEDS: FAT EMULSION/OLIVE/SOY/PHOSPHO 250 ML IV SCH (22:33)
[2021-09-10] MEDS: ATORVASTATIN CA 10 MG TABLET (FP) PO SCH (22:33)
[2021-09-10] MEDS: ACETAMINOPHEN 325 MG TABLET (FP) PO PRN (22:37)
[2021-09-10] MEDS: MELATONIN 5 MG TABLETS PO PRN (22:37)
[2021-09-11] MEDS: METOPROLOL TARTRATE 50 MG TABLET (FP) PO SCH ×4 (05:45→21:02)
[2021-09-11] MEDS: LEVOTHYROXINE NA 25 MCG TABLET (FP) PO SCH (06:31)
[2021-09-11] MEDS ORDERED: DEXTROSE 5%-WATER - 50 ML IVPB ONE (09:07)
[2021-09-11] MEDS ORDERED: cefTRIAXone SODIUM 1 GM VIAL ONE (09:07)
[2021-09-11] MEDS: CEFTRIAXONE 1 GM in DEXTROSE 5%-WATER - 50 ML IVPB SCH (09:22)
[2021-09-11] MEDS: PANTOPRAZOLE SODIUM 40 MG VIAL IVPUSH SCH (09:22)
[2021-09-11] MEDS: SODIUM CHLORIDE 1 GM TABLET PO SCH ×2 (09:23→09:24)
[2021-09-11] MEDS: LOSARTAN POTASSIUM 25 MG TABLET PO SCH (09:25)
[2021-09-11] MEDS: AMMONIUM LACTATE 12% LOTION 225 GM BOTTLE TP SCH ×2 (12:43→21:02)
[2021-09-11] MEDS: MULTIVIT INJ. ADULT COMBO WITH VIT K 1 COMBO 10 ML VIAL IV SCH (12:47)
[2021-09-11] MEDS: AMINO ACIDS 4.25%/D5W 1,000 ML IV SCH (18:52)
[2021-09-11] MEDS: RIVAROXABAN 20 MG TABLET PO SCH (19:05)
[2021-09-11] MEDS: FAT EMULSION/OLIVE/SOY/PHOSPHO 250 ML IV SCH ×2 (19:11→22:11)
[2021-09-11] MEDS: ACETAMINOPHEN 325 MG TABLET (FP) PO PRN (21:01)
[2021-09-11] MEDS: ATORVASTATIN CA 10 MG TABLET (FP) PO SCH (21:02)
[2021-09-12] MEDS: METOPROLOL TARTRATE 50 MG TABLET (FP) PO SCH ×3 (06:04→21:09)
[2021-09-12] MEDS: LEVOTHYROXINE NA 25 MCG TABLET (FP) PO SCH (06:04)
[2021-09-12] MEDS ORDERED: DEXTROSE 5%-WATER - 50 ML IVPB ONE (08:30)
[2021-09-12] MEDS ORDERED: cefTRIAXone SODIUM 1 GM VIAL ONE (08:30)
[2021-09-12] MEDS: PANTOPRAZOLE SODIUM 40 MG VIAL IVPUSH SCH (09:40)
[2021-09-12] MEDS: CEFTRIAXONE 1 GM in DEXTROSE 5%-WATER - 50 ML IVPB SCH (09:41)
[2021-09-12] MEDS: SODIUM CHLORIDE 1 GM TABLET PO SCH (09:42)
[2021-09-12] MEDS: AMMONIUM LACTATE 12% LOTION 225 GM BOTTLE TP SCH ×2 (09:42→21:09)
[2021-09-12] MEDS: LOSARTAN POTASSIUM 25 MG TABLET PO SCH (10:04)
[2021-09-12 11:21] LABS: BASO % 0.6 % (0-2.0); EOS % 1.6 % (0-4.5); HEMATOCRIT 34.9 % (32.4-45.2); HEMOGLOBIN 11.6 GM/dL (10.7-15.3); LYMPH % 7.6 % (8-40); MCH 27.8 pg (25.7-33.7); MCHC 33.2 g/dl (32.0-36.0); MEAN CELL VOLUME 83.6 fl (80-96); MEAN PLT VOLUME 10.5 fl (7.5-11.1); MONO % 5.9 % (3.8-10.2); NEUT % 84.3 % (42.8-82.8); PLATELET COUNT 216 10^3/uL (134-434); RBC 4.18 M/mm3 (3.60-5.2); RDW 14.3 % (11.6-15.6); WHITE BLOOD COUNT 13.5 K/mm3 (4.0-10.0)
[2021-09-12 11:37] LABS: CALCIUM 8.6 mg/dL (8.5-10.1)
[2021-09-12 11:38] LABS: BLOOD UREA NITROGEN 30.6 mg/dL (7-18)
[2021-09-12 11:41] LABS: CREATININE 0.7 mg/dL (0.55-1.3)
[2021-09-12] MEDS: MULTIVIT INJ. ADULT COMBO WITH VIT K 1 COMBO 10 ML VIAL IV SCH ×2 (14:45→15:58)
[2021-09-12] MEDS: AMINO ACIDS 4.25%/D5W 1,000 ML IV SCH (15:31)
[2021-09-12] MEDS: RIVAROXABAN 20 MG TABLET PO SCH (19:28)
[2021-09-12] MEDS: ACETAMINOPHEN 325 MG TABLET (FP) PO PRN (21:09)
[2021-09-12] MEDS: FAT EMULSION/OLIVE/SOY/PHOSPHO 250 ML IV SCH (21:09)
[2021-09-12] MEDS: ATORVASTATIN CA 10 MG TABLET (FP) PO SCH (21:09)
[2021-09-12] MEDS: MELATONIN 5 MG TABLETS PO PRN (21:09)
[2021-09-13] MEDS: LEVOTHYROXINE NA 25 MCG TABLET (FP) PO SCH (06:03)
[2021-09-13] MEDS: METOPROLOL TARTRATE 5 MG/5 ML VIAL IVPUSH PRN (06:03)
[2021-09-13] MEDS: METOPROLOL TARTRATE 50 MG TABLET (FP) PO SCH ×3 (06:03→21:54)
[2021-09-13 09:10] LABS: ALBUMIN 2.2 g/dl (3.4-5.0); BLOOD UREA NITROGEN 30.4 mg/dL (7-18); CALCIUM 8.8 mg/dL (8.5-10.1)
[2021-09-13 09:14] LABS: CREATININE 0.6 mg/dL (0.55-1.3)
[2021-09-13 09:16] LABS: BILIRUBIN,TOTAL 0.5 mg/dL (0.2-1)
[2021-09-13] MEDS ORDERED: DIGOXIN 0.5 MG/2 ML AMPUL IVPUSH ONE (09:52)
[2021-09-13 09:54] LABS: BASO % 1.1 % (0-2.0); HEMATOCRIT 34.2 % (32.4-45.2); HEMOGLOBIN 11.3 GM/dL (10.7-15.3); LYMPH % 9.4 % (8-40); MCH 27.9 pg (25.7-33.7); MEAN CELL VOLUME 84.5 fl (80-96); MEAN PLT VOLUME 11.3 fl (7.5-11.1); MONO % 7.9 % (3.8-10.2); NEUT % 80.6 % (42.8-82.8); PLATELET COUNT 189 10^3/uL (134-434); RBC 4.04 M/mm3 (3.60-5.2); RDW 14.7 % (11.6-15.6); WHITE BLOOD COUNT 13.4 K/mm3 (4.0-10.0)
[2021-09-13] MEDS: LOSARTAN POTASSIUM 25 MG TABLET PO SCH (10:39)
[2021-09-13] MEDS: PANTOPRAZOLE SODIUM 40 MG VIAL IVPUSH SCH (10:39)
[2021-09-13] MEDS: SODIUM CHLORIDE 1 GM TABLET PO SCH (10:39)
[2021-09-13] MEDS: AMMONIUM LACTATE 12% LOTION 225 GM BOTTLE TP SCH ×2 (10:39→21:53)
[2021-09-13] MEDS: MULTIVIT INJ. ADULT COMBO WITH VIT K 1 COMBO 10 ML VIAL IV SCH (10:41)
[2021-09-13] MEDS: AMINO ACIDS 4.25%/D5W 1,000 ML IV SCH (16:57)
[2021-09-13] MEDS: RIVAROXABAN 20 MG TABLET PO SCH (17:04)
[2021-09-13] MEDS: FAT EMULSION/OLIVE/SOY/PHOSPHO 250 ML IV SCH (21:53)
[2021-09-13] MEDS: ATORVASTATIN CA 10 MG TABLET (FP) PO SCH (21:54)
[2021-09-14] MEDS: METOPROLOL TARTRATE 50 MG TABLET (FP) PO SCH ×3 (06:32→22:23)
[2021-09-14] MEDS: LEVOTHYROXINE NA 25 MCG TABLET (FP) PO SCH (06:32)
[2021-09-14 08:15] LABS: BASO % 0.8 % (0-2.0); EOS % 1.8 % (0-4.5); LYMPH % 11.7 % (8-40); MCH 28.7 pg (25.7-33.7); MCHC 34.4 g/dl (32.0-36.0); MEAN CELL VOLUME 83.3 fl (80-96); MEAN PLT VOLUME 10.3 fl (7.5-11.1); MONO % 8.8 % (3.8-10.2); NEUT % 76.9 % (42.8-82.8); PLATELET COUNT 176 10^3/uL (134-434); RBC 3.84 M/mm3 (3.60-5.2); RDW 14.4 % (11.6-15.6); WHITE BLOOD COUNT 9.4 K/mm3 (4.0-10.0)
[2021-09-14 08:28] LABS: CALCIUM 8.4 mg/dL (8.5-10.1)
[2021-09-14 08:29] LABS: BLOOD UREA NITROGEN 23.8 mg/dL (7-18)
[2021-09-14 08:33] LABS: CREATININE 0.5 mg/dL (0.55-1.3)
[2021-09-14] MEDS: LOSARTAN POTASSIUM 25 MG TABLET PO SCH (10:20)
[2021-09-14] MEDS: PANTOPRAZOLE SODIUM 40 MG VIAL IVPUSH SCH (10:21)
[2021-09-14] MEDS: SODIUM CHLORIDE 1 GM TABLET PO SCH (10:21)
[2021-09-14] MEDS: AMMONIUM LACTATE 12% LOTION 225 GM BOTTLE TP SCH ×2 (10:21→22:23)
[2021-09-14] MEDS: MULTIVIT INJ. ADULT COMBO WITH VIT K 1 COMBO 10 ML VIAL IV SCH (13:57)
[2021-09-14] MEDS: AMINO ACIDS 4.25%/D5W 1,000 ML IV SCH (14:03)
[2021-09-14] MEDS: RIVAROXABAN 20 MG TABLET PO SCH (17:03)
[2021-09-14] MEDS: FAT EMULSION/OLIVE/SOY/PHOSPHO 250 ML IV SCH (22:23)
[2021-09-14] MEDS: ATORVASTATIN CA 10 MG TABLET (FP) PO SCH (22:23)
[2021-09-15] MEDS: LEVOTHYROXINE NA 25 MCG TABLET (FP) PO SCH (06:13)
[2021-09-15] MEDS: METOPROLOL TARTRATE 50 MG TABLET (FP) PO SCH ×3 (06:13→21:06)
[2021-09-15] MEDS: SODIUM CHLORIDE 1 GM TABLET PO SCH (10:36)
[2021-09-15] MEDS: AMMONIUM LACTATE 12% LOTION 225 GM BOTTLE TP SCH ×2 (10:36→21:06)
[2021-09-15] MEDS: LOSARTAN POTASSIUM 25 MG TABLET PO SCH (10:36)
[2021-09-15] MEDS: PANTOPRAZOLE SODIUM 40 MG VIAL IVPUSH SCH (10:36)
[2021-09-15] MEDS: dilTIAZem HCL 30 MG TABLET PO SCH ×2 (14:54→21:05)
[2021-09-15] MEDS: RIVAROXABAN 20 MG TABLET PO SCH (18:10)
[2021-09-15] MEDS: AMINO ACIDS 4.25%/D5W 1,000 ML IV SCH (21:05)
[2021-09-15] MEDS: FAT EMULSION/OLIVE/SOY/PHOSPHO 250 ML IV SCH (21:05)
[2021-09-15] MEDS: ATORVASTATIN CA 10 MG TABLET (FP) PO SCH (21:06)
[2021-09-15 23:42] VITALS: RESP 20
[2021-09-16] MEDS: dilTIAZem HCL 30 MG TABLET PO SCH ×2 (05:43→14:55)
[2021-09-16] MEDS: METOPROLOL TARTRATE 50 MG TABLET (FP) PO SCH ×2 (05:43→14:55)
[2021-09-16] MEDS: LEVOTHYROXINE NA 25 MCG TABLET (FP) PO SCH (06:25)
[2021-09-16 11:17] LABS: BASO % 0.9 % (0-2.0); EOS % 0.5 % (0-4.5); HEMATOCRIT 31.9 % (32.4-45.2); HEMOGLOBIN 10.9 GM/dL (10.7-15.3); LYMPH % 10.3 % (8-40); MCH 28.2 pg (25.7-33.7); MCHC 34.1 g/dl (32.0-36.0); MEAN CELL VOLUME 82.8 fl (80-96); MONO % 7.4 % (3.8-10.2); NEUT % 80.9 % (42.8-82.8); PLATELET COUNT 178 10^3/uL (134-434); RBC 3.85 M/mm3 (3.60-5.2); RDW 14.7 % (11.6-15.6); WHITE BLOOD COUNT 7.9 K/mm3 (4.0-10.0)
[2021-09-16] MEDS: SODIUM CHLORIDE 1 GM TABLET PO SCH (11:21)
[2021-09-16] MEDS: PANTOPRAZOLE SODIUM 40 MG VIAL IVPUSH SCH (11:21)
[2021-09-16] MEDS: AMMONIUM LACTATE 12% LOTION 225 GM BOTTLE TP SCH (11:21)
[2021-09-16] MEDS: LOSARTAN POTASSIUM 25 MG TABLET PO SCH (11:21)
[2021-09-16 11:36] LABS: CALCIUM 8.4 mg/dL (8.5-10.1)
[2021-09-16 11:37] LABS: BLOOD UREA NITROGEN 21.9 mg/dL (7-18)
[2021-09-16 11:40] LABS: CREATININE 0.5 mg/dL (0.55-1.3)
[2021-09-16 14:16] VITALS: BP 106/66; PULSE 100; TEMP 98.2
[2021-09-16] MEDS: MULTIVIT INJ. ADULT COMBO WITH VIT K 1 COMBO 10 ML VIAL IV SCH (15:04)
[2021-09-16] MEDS: AMINO ACIDS 4.25%/D5W 1,000 ML IV SCH (15:28)
[2021-09-17] MEDS ORDERED: PANTOPRAZOLE 20 MG TABLET PO SCH (10:00)
== END 2021-09-16 16:26 | DRG 689 ==
LOC: JER 12:53 → JERBED 20:48 → J4W 08-17 03:27 → J5S 08-23 18:29 → J4S 09-01 17:24
PROVIDERS: ADMIT Hospitalist; ATTEND Internal Medicine
PROC: 0HBRXZZ Excision of Toe Nail, External Approach (ICD-10-PCS; principal; 2021-08-22)
PROC: XW033E5 Introduction of Remdesivir Anti-infective into Peripheral Vein, Percutaneous Approach, New Technology Group 5 (ICD-10-PCS; 2021-08-28)
DX: N39.0 Urinary tract infection, site not specified (principal); G92.8 Other toxic encephalopathy; U07.1 COVID-19; J12.82 Pneumonia due to coronavirus disease 2019; I24.8 Other forms of acute ischemic heart disease; I47.1 Supraventricular tachycardia; E87.1 Hypo-osmolality and hyponatremia; I48.92 Unspecified atrial flutter; E03.9 Hypothyroidism, unspecified; B35.1 Tinea unguium; L85.3 Xerosis cutis; N81.4 Uterovaginal prolapse, unspecified; R62.7 Adult failure to thrive; B96.5 Pseudomonas (aeruginosa) (mallei) (pseudomallei) as the cause of diseases classified elsewhere; I25.10 Atherosclerotic heart disease of native coronary artery without angina pectoris; I27.20 Pulmonary hypertension, unspecified; D72.819 Decreased white blood cell count, unspecified
CPT/HCPCS: 0241U-QW; 36415; 70450-TC; 71045-TC-FY; 71250-TC; 72125-TC; 72170-TC-FY; 72192-TC; 73562-TC-LT-FY; 73610-TC-LT-FY; 80048; 80053; 80061; 81003; 82436; 82533; 82550; 82553; 82570; 82607; 83605; 83615; 83735; 83880; 83930; 83935; 84100; 84133; 84252; 84300; 84439; 84443; 84484; 84550; 85025; 85610; 85730; 86140; 87086; 87186; 93005; 93010; 93306-TC; 97116-GP; 97162-GP; 99285-25; C9399; C9803-CS; U0003; U0005